=== PATIENT | male | born 1965 | race Caucasian/White ===

== ENCOUNTER 2017-11-14 08:00 | Outpatient (RCR) | payer BC ==
[~2017-11-14 08:00] MED LIST: DENIES; DIC50 PO
[2017-11-14 08:10] VITALS: BP 137/84
--- NOTE | 2017-11-14 17:40 | ONCOLOGY FOLLOW UP NOTE ---
EVENT DATE: November 14, 2017 DIAGNOSES 1. Hemochromatosis, heterozygous state. 2. Hypothyroidism. CHIEF COMPLAINT The patient is here today for followup of his hereditary hemochromatosis. HEMATOLOGY HISTORY Patient is here today for followup of his hereditary hemochromatosis. Patient has been followed in the past by Dr. Rodrigo Centeno, his primary care provider. He has been seen by Dr. Jesika Mistry on January 28, 2013. Upon consultation patient was found to have elevated iron studies. His iron level was 188. On January 30, 2011 it was 219. On May 06, 2012 it was 175. On November 25, 2012 it was 277. His iron saturation was high at 59%, 72% on January 30, 2011, and 58% May 06, 2012, 91% on November 25, 2012. His CBC on November 25, 2017 showed hemoglobin and hematocrit of 18.9 and 54.5%. Ferritin was low at 196 on December. Genetic testing for hemochromatosis came back positive for heterozygous state for H63D mutation. Patient started phlebotomy sessions since his diagnosis in 2012, and he is currently on phlebotomy every other month with iron studies checked every four months. Patient has been diagnosed with heterozygous state of hereditary hemochromatosis. Patient was maintained on phlebotomy every other month at [facility] with iron studies checked there every four months. He did not show for nearly three years. Generally speaking he is doing fine. PAST MEDICAL HISTORY Iron overload. PAST SURGICAL HISTORY 1. Shoulder surgery 2007. 2. Ganglion cyst removal 2002. 3. Bilateral wrist fractures 1982. SOCIAL HISTORY Patient is single. 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 He does not drink alcohol. He is a never smoker. No abuse of illicit drugs. FAMILY HISTORY Negative for cancer or blood diseases. CURRENT MEDICATIONS None. ALLERGIES PENICILLIN which caused hives. No known environmental allergies or latex allergies. HISTORY OF PRESENT ILLNESS Patient is here today for followup of his hereditary hemochromatosis with heterozygous state of H63D mutation. Patient is doing fine currently, except for lower back pain. Other than that he is totally asymptomatic. Patient is here today for followup of his hereditary hemochromatosis with iron overload. He is doing really very well, except for lower back pain. Other than that he is doing fine. REVIEW OF SYSTEMS CONSTITUTIONAL: No appetite or weight change. No fever, chills or sweating. No recent infection. HEENT: Ears: No tinnitus or hearing problem. Nose: No nasal discharge or epistaxis. Throat: No sore throat or mouth ulcers. Eyes: No diplopia or visual changes. RESPIRATORY: No shortness of breath. No cough, expectoration or hemoptysis. CARDIOVASCULAR: No chest pain, orthopnea, or paroxysmal nocturnal dyspnea (PND) . No edema. No palpitations. GASTROINTESTINAL: No nausea or vomiting. No diarrhea or constipation. No change in bowel movements. No heartburn or swallowing difficulties. No abdominal pain. No jaundice. No hematemesis, melena or rectal bleeding. GENITOURINARY: No hematuria or dysuria. MUSCULOSKELETAL: The patient has lower back pain. NEUROLOGICAL: No tingling or numbness in the hands or feet. No headaches or convulsions. HEMATOLOGIC/LYMPHATIC: No bleeding or easy bruising. No weakness or fatigue. No enlarged lymph nodes. SKIN: No skin rash or lumps. PSYCHIATRIC: No anxiety or depression. PHYSICAL EXAMINATION GENERAL: Looks stable. Well-developed, well-nourished, and in no acute distress. VITAL SIGNS: Blood pressure 137/84, pulse 58 per minute, respirations 16 per minute, temperature 97, pulse oximetry 93% on room air. HEENT: Head: Atraumatic. No sinus tenderness to palpation. Eyes: No icterus or conjunctivitis. Mouth and throat: No oral thrush or mucositis. NECK: Supple. No cervical or supraclavicular lymphadenopathy. LUNGS: Clear to auscultation and percussion bilaterally. HEART: Regular rate and rhythm. No gallops, murmurs, clicks or rubs. ABDOMEN: Soft and lax. No tenderness. No hepatosplenomegaly. No masses. EXTREMITIES: No cyanosis, clubbing or edema. LYMPHATICS: No peripheral lymphadenopathy. NEUROLOGICAL: Conscious, alert and oriented times three. No focal motor or sensory deficits. PSYCHIATRIC: Mood and affect appear normal. SKIN: No skin rash, bruise or purpuric eruption. DIAGNOSTIC DATA CBC shows a white count 4.7, hemoglobin 17, hematocrit 52.8, platelets 199,000. ASSESSMENT 1. Iron overload with heterozygous state for H63D mutation of the HFE gene. Patient is maintained on phlebotomies every other month. He has CBC checked every two months and iron studies every four months. I am planning to continue the same schedule for the labs and for the phlebotomy. My target for phlebotomy , if ferritin more than 59 ng/mL and/or iron saturation more than 60%. I will try to get his records at [facility] for the last year to decide if he will need phlebotomy every other month, or if we can extend that in the future. I explained that to the patient. Patient is agreeable with the plan of management. 2. Mild hypothyroidism with mild elevation of TSH. Thyroid ultrasound showed 6 mm nonspecific nodules in the past. PLAN 1. Continue followup. 2. Patient to return in one year with CBC, chem panel, iron studies with ferritin. 3. Check iron studies every four months and CBC every two months. 4. Phlebotomize 500 mL of blood every two months as long as his ferritin is above 50 ng/mL and/or iron saturation more than 60%. 5. The patient to contact us for any new concern or complaints. ROSIE
== END 2017-11-17 08:50 | disposition home or self-care (01) ==
LOC: ONC 08:00
PROVIDERS: ATTEND Internal Medicine Hematology
DX: E83.110 Hereditary hemochromatosis (principal); E03.9 Hypothyroidism, unspecified; M54.5 Low back pain

== ENCOUNTER 2018-10-09 07:42 | Outpatient (RCR) | payer BC ==
[2018-10-09 08:05] VITALS: BP 133/73
--- NOTE | 2018-10-09 11:13 | ONCOLOGY FOLLOW UP NOTE ---
EVENT DATE: October 09, 2018 CHIEF COMPLAINT Followup for hemochromatosis. HISTORY OF PRESENT ILLNESS Patient is a 53-year old male diagnosed with hereditary hemochromatosis, heterozygous state, for H63D mutation. He was initially noted to have elevated iron studies in 2010. Ferritin and iron saturation were also elevated. Genetic testing was positive for heterozygous state for H63D mutation. He began phlebotomy every two months in 2012. He is tolerating this well and actually feels better after his phlebotomy. He denies any arthralgias or any other complaints. Last phlebotomy was on September 07, 2018. PAST MEDICAL HISTORY Hereditary hemochromatosis, heterozygous state for H63D mutation. PAST SURGICAL HISTORY 1. Shoulder surgery, 2007. 2. Ganglion cyst removal, 2002. 3. Bilateral wrist fracture repair, 1982. FAMILY HISTORY Negative for malignancy or blood disorder. SOCIAL HISTORY Patient is single. He works at [employer] in the [employer] department. He does not drink alcohol. He is a never smoker. No abuse of illicit drugs. CURRENT MEDICATIONS None. ALLERGIES PENICILLIN, which causes hives. REVIEW OF SYSTEMS A 12-point review of systems is performed and is negative except as stated above. PHYSICAL EXAMINATION VITAL SIGNS: Weight 88.8 kg, BP 133/73, P 65, R 16, temperature 96.6, O2 sat 90%. GENERAL: Patient is a well-developed, well-nourished male in no acute distress. HEAD: Normocephalic, atraumatic. EYES: Sclerae anicteric. MOUTH: Moist mucous membranes. LUNGS: Clear bilaterally. CARDIOVASCULAR: Heart rate regular, 65 per minute without murmur, S3 or S4. EXTREMITIES: No edema. NEUROLOGICAL: Nonfocal. LABS CBC from September 07, 2018 showed a WBC of 4.8, hemoglobin 16.6, hematocrit 50.2, platelets 235,000. IMPRESSION AND PLAN The patient is a 53-year old male diagnosed with hemochromatosis, heterozygous state for H63D mutation. He has been undergoing phlebotomy since diagnosis in 2012. PLAN Hemochromatosis. Patient has been tolerating every two month phlebotomy. CBC is within normal limits. However, on review of previous labs which were just obtained, ferritin in June 2018 was 21 and ferritin in December 2017 was 32. He will next be due for phlebotomy the end of October 2018. At that time, he will have labs drawn including hematocrit, iron panel and ferritin and further decisions regarding timing of phlebotomy will be made at that time. Based on these labs, frequency of phlebotomy will likely be decreased from every two months. Patient states understanding. We will recheck labs in October 2018 at [facility] and decisions regarding phlebotomy will be made based on those results. MTDD
== END 2018-12-09 09:00 | disposition home or self-care (01) ==
LOC: ONC 07:42
PROVIDERS: ATTEND Internal Medicine Hematology
DX: E83.119 Hemochromatosis, unspecified (principal)
CPT/HCPCS: 99212